=== PATIENT | male | born 1995 | race Caucasian/White ===

== ENCOUNTER 2023-05-26 15:56 | Emergency (ER) | payer SELFPAY ==
[2023-05-26] VITALS (33 sets, daily range): BP systolic 108–140; BP diastolic 73–95; PULSE 55–93; RESP 11–25; TEMP 36.4; O2SAT 98–100
--- NOTE | ~2023-05-26 | CT_ITS ---
EXAMINATION: CT brain wo con DATE: 05/26/2023 20:49 INDICATION: Headache. Lightheadedness. TECHNIQUE: Computed tomography (CT) of the head was performed without intravenous contrast. The mA wa s adjusted according to patient size. Iterative reconstruction technique was employed. The dose-lengt h product was 605.33 mGy-cm. COMPARISON: None FINDINGS: There is no intracranial hemorrhage, acute infarction, or abnormal intracranial mass lesion . The ventricles are normal in size. The orbits are normal. The paranasal sinuses are clear. The mast oid air cells are normal. IMPRESSION: 1. Normal brain. Reviewed, dictated and finalized at location E. IMPRESSION: 1. Normal brain.
--- NOTE | ~2023-05-26 | XR_ITS ---
EXAMINATION: XR chest 2V DATE: 05/26/2023 16:25 INDICATION: Midsternal and right-sided chest pain. TECHNIQUE: Frontal and lateral views of the chest were obtained. COMPARISON: None. FINDINGS: The chest demonstrates clear lungs without pneumonia, pleural effusion, or pneumothorax. Th e heart size is normal. IMPRESSION: 1. No acute cardiopulmonary disease. Reviewed, dictated and finalized at location E.
--- NOTE | 2023-05-26 16:00 | ECG_ITS ---
Measurements Intervals [place] Rate: 82 P: 34 AK: 112 QRS: 44 QRSD: 105 T: 25 QT: 332 QTc: 389 Interpretive Statements SINUS RHYTHM WITH SHORT AK INTERVAL INCOMPLETE RIGHT BUNDLE BRANCH BLOCK BORDERLINE ECG NO PREVIOUS ECG AVAILABLE FOR COMPARISON Electronically Signed On 05-26-2023 18:26:11 CDT by Daniel Cabral D.O.
[2023-05-26] MEDS: Please add drug allergy info to patient profile. 1 EACH XX (18:54)
[2023-05-26] MEDS: ASPIRIN 81 MG CHEWABLE TABLET 324 MG PO (18:54)
[2023-05-26 19:40] LABS: Basophils Absolute Auto 0.1 K/mm3 (0.0-0.1); Basophils Percent Auto 0.9 % (0.2-1.2); Eosinophils Absolute Auto 0.1 K/mm3 (0-0.3); Hematocrit 48.2 % (42.0-52.0); Hemoglobin 16.3 g/dL (14.0-18.0); Immature Granulocyte Absolute 0.02 K/mm3 (0.00-0.031); Immature Granulocyte Percent A 0.3 % (0-0.5); Lymphocytes Absolute Auto 3.04 K/mm3 (0.9-3.2); Lymphocytes Percent Auto 43.3 % (18.3-44.2); Mean Corpuscular HGB Conc 33.8 g/dl (32-36); Mean Corpuscular Hemoglobin 30.2 pg (26-34); Mean Corpuscular Volume 89.3 fl (80-100); Mean Platelet Volume 9.7 fl (7.4-10.4); Monocytes Absolute Auto 0.5 K/mm3 (0.1-0.6); Monocytes Percent Auto 7.5 % (2.6-8.5); Neutrophils Absolute Auto 3.3 K/mm3 (1.3-6.7); Platelet Count Result 237 k/mm3 (150-375)
[2023-05-26 19:59] LABS: Prothrombin Time 13.4 Seconds (11.1-14.7)
[2023-05-26 20:00] LABS: Partial Thromboplastin Time 29.8 SECONDS (22.3-36.8)
[2023-05-26 20:04] LABS: Alanine Aminotransferase 38 U/L (6-50); Albumin Level 4.9 g/dL (3.5-5.1); Alkaline Phosphatase 55 U/L (38-126); Anion Gap 9 mmol/L (8-16); Aspartate Amino Transferase 30 U/L (17-59); Bilirubin,Total 0.6 mg/dL (0.2-1.3); Blood Urea Nitrogen 13 mg/dL (9-20); Calcium 9.3 mg/dL (8.4-10.2); Carbon Dioxide 32 mmol/L (22-30); Chloride 98 mmol/L (98-107); Estimated CRCL calculation 120 ml/min; Estimated Glomerular Filt Rate > 60; Glucose 100 mg/dL (65-110); Lipase 71 U/L (23-300); Potassium 4.1 mmol/L (3.4-5.0); Sodium 139 mmol/L (137-145)
[2023-05-26 20:06] LABS: D Dimer < 0.27 ug/mL (<0.48)
[2023-05-26 20:18] LABS: Troponin I < 0.012 ng/mL (0.000-0.034)
--- NOTE | 2023-05-26 20:22 | PC.NURSE ---
pt is resting with family at bedside. pt is axox4, abc are wnl nad. airway is wnl. pt placed on monitor and is in NSR.
--- NOTE | 2023-05-26 21:10 | ED.CHESTPAIN ---
HPI - Chest Pain General Chief Complaint: Chest Pain Stated Complaint: lightheaded/chest pain Time Seen by Provider: 05/26/23 18:51 Source: patient Mode of arrival: ambulatory Limitations: no limitations History of Present Illness HPI narrative: This is a 27-year-old male that presents to the emergency department with multiple complaints. Reporting intermittent sharp, substernal chest pain. Worse with movement. Also reporting lightheadedness and headaches which have been ongoing for several months. Reports he had a CT scan of his brain at another facility which showed an abnormality, but he is unsure what. Denies fever, cough, shortness of breath, lower extremity edema, or focal numbness or weakness. Related Data Allergies Allergy/AdvReac Type Severity Reaction Status Date / Time No Known Allergies Allergy Verified 05/26/23 16:14 Review of Systems Review of Systems: CONSTITUTIONAL: Denies fever EYES: Denies visual changes CARDIOVASCULAR: Reports chest pain. Denies edema. RESPIRATORY: Denies cough or dyspnea. GASTROINTESTINAL: Denies vomiting NEUROLOGIC: Reports headache. Denies numbness, or weakness. All systems reviewed & are unremarkable except as noted in HPI and below PMFSH Past Medical History Medical History (Updated 05/26/23 @ 23:18 by Annette Dimas PA-C) No active medical problems Social History Social History (Updated 05/26/23 @ 21:13 by Annette Dimas PA-C) Smoking status: Never smoker Exam Narrative: GENERAL: Well-appearing, well-nourished, and in no acute distress. HEAD: Normocephalic, atraumatic. EYES: PERRLA and EOMI. ENT: Nares clear, no rhinorrhea or epistaxis. Mucous membranes moist. Oropharynx without tonsillar hypertrophy exudate or other lesions. Bilateral TMs pearly wolfe non-bulging NECK: Supple. No adenopathy or masses. CHEST: Clear to auscultation. No respiratory distress. No wheezes rales or rhonchi HEART: Regular rate and rhythm. No murmur heard. Normal peripheral pulses. ABDOMEN: Soft, nontender, nondistended, normal active bowel sounds. EXTREMITIES: Normal range of motion. No edema. Strength equal in bilateral upper and lower extremities (5/5) SKIN: Warm, dry, no rash. NEURO: No focal deficits. Alert and oriented x3. Cranial nerves II through XII grossly intact PSYCH: Normal mood and affect Course Course Emergency Course: Patient and family updated on work-up and agree with plan of care Vital Signs Vital signs: Vital Signs Temperature 97.5 F L 05/26/23 16:12 Pulse Rate 93 05/26/23 16:12 Respiratory Rate 18 05/26/23 16:12 Blood Pressure 128/81 05/26/23 16:12 Pulse Oximetry 100 05/26/23 16:12 Oxygen Delivery Room Air 05/26/23 16:12 Temperature 97.5 F L 05/26/23 16:12 Pulse Rate 72 05/26/23 20:16 Respiratory Rate 17 05/26/23 20:16 Blood Pressure 126/80 05/26/23 20:16 Pulse Oximetry 100 05/26/23 20:16 Oxygen Delivery Room Air 05/26/23 16:12 MDM - Chest Pain MDM Narrative Medical decision making narrative: Patient presents to the emergency department complaining of intermittent pains. Also reports headaches that have been ongoing for several months. Patient is afebrile and nontoxic-appearing. He is neurologically intact. His vitals are stable. CBC and metabolic panel without concerning findings. EKG without acute ST changes and baseline and 3-hour troponin are negative. D-dimer is not elevated. CT scan of the brain is normal. Chest x-ray without acute cardiopulmonary abnormality. His heart score is 0. Patient and family were updated on work-up. Instructed to have close follow-up with primary provider. He was given warnings to return to the ER Differential Diagnosis Differential diagnosis: Likely stable angina, unstable angina pectoris, atypical chest pain, st elevation myocardial infarction, costochondritis and other (tension headache, migraine, tumor) Lab Data Attestation: I reviewed the patient's lab r
[2023-05-26] MEDS: SODIUM CHLORIDE 0.9% IV 500 ML 999 ML IV CONT (22:35)
[2023-05-26] MEDS: ACETAMINOPHEN 500 MG TABLET 1000 MG PO (22:36)
[2023-05-26 23:05] LABS: Troponin I < 0.012 ng/mL (0.000-0.034)
[2023-05-27] VITALS: TEMP 36.3
--- NOTE | 2023-06-05 23:54 | PC.NURSE ---
05/27/23 07:00 iv stop times
== END 2023-05-27 00:01 | disposition home or self-care (01) ==
PROVIDERS: Emergency Medicine; Emergency Provider Physician Assistant
DX: R07.89 Other chest pain (principal); R51.9 Headache, unspecified
CPT/HCPCS: 36415; 70450; 71046; 80053; 83690; 84484; 85025; 85380; 85610; 85730; 93005; 96360; 99284; A9270; J7040